=== PATIENT | male | born 1945 | race Caucasian/White ===

== ENCOUNTER → 2016-03-11 | Outpatient (CLI) | payer MEDICARE ==
--- NOTE | 2016-03-11 11:34 | FL ---
EXAMINATION TYPE: FL barium swallow DATE OF EXAM ORDERED: 03/11/2016 10:48 AM HISTORY: Dysphasia. COMPARISON: None. FINDINGS: The esophagus distended normally with air and barium without evidence of obstructing or co nstricting disease. The mucosal pattern throughout the esophagus is normal. There is no significant h iatal hernia or reflux. Limited views of the stomach are normal. IMPRESSION: NORMAL AIR-CONTRAST ESOPHAGRAM.
== END | disposition home or self-care (01) ==
LOC: RADFLWHC 10:16
PROVIDERS: ATTEND Family Medicine
DX: R13.10 Dysphagia, unspecified (principal)
CPT/HCPCS: 74220

== ENCOUNTER → 2016-04-14 | Outpatient (CLI) | payer MEDICARE ==
--- NOTE | 2016-04-14 13:53 | CT ---
EXAMINATION TYPE: CT abdomen wo con DATE OF EXAM: 04/14/2016 1:37 PM COMPARISON: NONE HISTORY: RUQ pain CT DLP: 1074.5 mGycm Automated exposure control for dose reduction was used. TECHNIQUE: Helical acquisition of images was performed from the lung bases through the top of iliac crest to include entire abdomen. CONTRAST: Performed with Oral Contrast and without IV contrast. FINDINGS: LUNG BASES: No significant abnormality is appreciated. LIVER/GB: Liver appears normal. Gallbladder may contain some calcification. PANCREAS: No significant abnormality is seen. SPLEEN: No significant abnormality is seen. ADRENALS: No significant abnormality is seen. KIDNEYS: There is a 0.5 cm calcification in the posterior mid pole left kidney. 0.4 cm calcification at the inferior pole right kidney. A 1.0 cm calcifications in the posterior midpole right kidney. No hydronephrosis or hydroureter is evident. BOWEL: No significant abnormality is seen. LYMPH NODES: No abnormal lymphadenopathy is evident. Abdominal aorta contains vascular calcification . Inferior vena cava is normal. OSSEOUS STRUCTURES: No significant abnormality is seen. OTHER: None IMPRESSION: BILATERAL NONOBSTRUCTING RENAL STONES.
== END | disposition home or self-care (01) ==
LOC: RADCTMAIN 12:28
PROVIDERS: ATTEND Family Medicine
DX: N20.0 Calculus of kidney (principal)
CPT/HCPCS: 74150

== ENCOUNTER → 2016-04-17 | Outpatient (CLI) | payer MEDICARE ==
--- NOTE | 2016-04-17 09:26 | NM ---
EXAMINATION TYPE: NM hepatobiliary w EF DATE OF EXAM: 04/17/2016 9:21 AM COMPARISON: NONE HISTORY: Right upper quadrant. TECHNIQUE: After the intravenous administration of 5.32 mCi Tc 99m Mebrofenin hepatobiliary scintigra phy is performed. Immediate images post injection. FINDINGS: There is satisfactory initial accumulation of tracer by the liver. The gallbladder is visualized wit hin 20 minutes. The small bowel activity is noted within 55 minutes. At one hour 8 ounces of oral e nsure plus is given to mimic CCK and gallbladder ejection fraction is calculated at 74 %, in the norm al range. Therefore there is no scintigraphic evidence of cystic or common bile duct obstruction to suggest acute cholecystitis or gallbladder dyskinesia. IMPRESSION: Exam is within normal limits.
== END | disposition home or self-care (01) ==
LOC: RADNMMAIN 06:58
PROVIDERS: ATTEND Family Medicine
DX: K81.9 Cholecystitis, unspecified (principal)
CPT/HCPCS: 78226; A9537

== ENCOUNTER → 2016-04-23 | Outpatient (CLI) | payer MEDICARE ==
[2016-04-23 14:22] LABS: Bilirubin, Delta 0.3 mg/dL (0.0-0.2); Total Bilirubin 1.3 mg/dL (0.2-1.3); Total Protein 6.3 g/dL (6.3-8.2)
== END | disposition home or self-care (01) ==
LOC: LABWHC1 13:25
PROVIDERS: ATTEND Physician Assistant
DX: R10.13 Epigastric pain (principal)
CPT/HCPCS: 36415; 80076; 82150; 83690

== ENCOUNTER → 2016-04-29 | Outpatient (CLI) | payer MEDICARE ==
[2016-04-29 15:00] LABS: Bilirubin, Delta 0.5 mg/dL (0.0-0.2); Total Bilirubin 1.6 mg/dL (0.2-1.3)
== END | disposition home or self-care (01) ==
LOC: LABWHC1 13:33
PROVIDERS: ATTEND Internal Medicine
DX: R19.7 Diarrhea, unspecified (principal); R10.13 Epigastric pain
CPT/HCPCS: 36415; 80076; 82150; 83690; 87045; 87046; 87324

== ENCOUNTER → 2016-04-30 | Outpatient (CLI) | payer MEDICARE ==
--- NOTE | 2016-04-30 19:31 | CT ---
EXAMINATION TYPE: CT brain wo con DATE OF EXAM: 04/30/2016 7:04 PM COMPARISON: 03/07/2006 HISTORY: Headache x [address] DLP: 1062.70 mGycm Automated exposure control for dose reduction was used. FINDINGS: There is cerebral cortical atrophy. There is no mass effect nor midline shift. There is no sign of in tracranial hemorrhage. Calvarium is intact. IMPRESSION: Cerebral atrophy. No acute intracranial abnormality. No adverse change compared to old exam.
== END | disposition home or self-care (01) ==
LOC: RADCTMAIN 18:33
PROVIDERS: ATTEND Family Medicine
DX: G31.9 Degenerative disease of nervous system, unspecified (principal)
CPT/HCPCS: 70450

== ENCOUNTER → 2016-09-04 | Outpatient (CLI) | payer MEDICARE ==
--- NOTE | 2016-09-04 15:34 | US ---
EXAMINATION TYPE: US venous doppler duplex LE BI DATE OF EXAM: 09/04/2016 2:48 PM COMPARISON: NONE CLINICAL HISTORY: R60.9 edema R09.89 chest pain. SIDE PERFORMED: Bilateral TECHNIQUE: The lower extremity deep venous system is examined utilizing real time linear array sonog norberto with graded compression, doppler sonography and color-flow sonography. VESSELS IMAGED: External Iliac Vein (EIV) Common Femoral Vein Deep Femoral Vein Greater Saphenous Vein * Femoral Vein Popliteal Vein Small Saphenous Vein * Proximal Calf Veins (* superficial vessels) No popliteal fossa lesion is seen. Right Leg: Negative for DVT Left Leg: Negative for DVT IMPRESSION: THIS EXAMINATION IS NEGATIVE FOR DVT IN BOTH LEGS.
--- NOTE | 2016-09-06 12:23 | ECHOF ---
Referral Reason:Neck Pain / M54.2 MEASUREMENTS -------- HEIGHT: 185.4 cm WEIGHT: 140.6 kg BP: RVIDd: 4.0 cm (< 3.3) IVSd: 1.1 cm (0.6 - 1.1) LVIDd: 4.5 cm (3.9 - 5.3) LVPWd: 1.3 cm (0.6 - 1.1) IVSs: 1.7 cm LVIDs: 3.6 cm LVPWs: 1.6 cm Ao Diam: 3.8 cm (2.0 - 3.7) AV Cusp: 2.6 cm (1.5 - 2.6) LA Diam: 4.1 cm (2.7 - 3.8) MV EXCURSION: 9.479 mm (> 18.000) MV EF SLOPE: 70 mm/s (70 - 150) EPSS: 1.3 cm MV E Ziggy: 0.46 m/s MV DecT: 227 ms MV A Ziggy: 0.76 m/s MV E/A Ratio: 0.60 RAP: 5.00 mmHg RVSP: 9.35 mmHg FINDINGS -------- Sinus rhythm. This was a technically difficult study with suboptimal views. There is mild concentric left ventricular hypertrophy. Overall left ventricular systolic function is normal with, an EF between 55 - 60 %. The right ventricle is moderately enlarged. The left atrium is normal in size. The right atrium is normal in size. 1.5mg of Definity was utilized for enhancement of images The aortic valve is trileaflet, and appears structurally normal. No aortic stenosis or regurgitation. The mitral valve leaflets are mildly thickened. There is trace mitral regurgitation. Trace tricuspid regurgitation present. The right ventricular systolic pressure, as measured by Doppler, is 9.35mmHg. Pulmonic valve appears structurally normal. The aortic root size is normal. The pericardium is normal. CONCLUSIONS -------- 1. Sinus rhythm. 2. The mitral valve leaflets are mildly thickened. 3. There is trace mitral regurgitation. 4. Trace tricuspid regurgitation present. 5. The right ventricular systolic pressure, as measured by Doppler, is 9.35mmHg. 6. Pulmonic valve appears structurally normal. 7. The aortic root size is normal. 8. The pericardium is normal. 9. This was a technically difficult study with suboptimal views. 10. There is mild concentric left ventricular hypertrophy. 11. Overall left ventricular systolic function is normal with, an EF between 55 - 60 %. 12. The right ventricle is moderately enlarged. 13. The left atrium is normal in size. 14. The right atrium is normal in size. 15. 1.5mg of Definity was utilized for enhancement of images 16. The aortic valve is trileaflet, and appears structurally normal. No aortic stenosis or regurgitation. ROLLING DOWN MACHINE OPERATOR: Nathalia Godwin RDCS
--- NOTE | 2016-09-09 11:32 | P.ARTDOP ---
Arterial Doppler LOWER EXTREMITY ARTERIAL DOPPLER: DATE OF SERVICE: 09/04/2016 Reason for study: Lower extremity edema. Doppler waveforms: Multiphasic bilaterally throughout. Pulse volume recording: Normal configuration. Pressure gradients: None. Ankle-brachial indices: Greater than 1 bilaterally. Toe pressures: [] on the right, [] on the left Impression: Normal study.
== END | disposition home or self-care (01) ==
LOC: RADUSWWP 14:02
PROVIDERS: ATTEND Family Medicine
DX: I08.1 Rheumatic disorders of both mitral and tricuspid valves (principal); I51.7 Cardiomegaly; R60.9 Edema, unspecified
CPT/HCPCS: 93923; 93970; C8929; Q9957; 93306

== ENCOUNTER → 2016-11-09 | Outpatient (CLI) | payer MEDICARE ==
[2016-11-09 13:20] LABS: INR 1.1 (<1.2); Partial Thromboplastin Time 25.5 sec (22.0-30.0); Prothrombin Time 10.9 sec (9.0-12.0)
[2016-11-09 14:15] LABS: Rheumatoid Factor, Qnt <9 IU/mL (<12)
[2016-11-09 14:16] LABS: C Reactive Protein <5.0 mg/L (<10.0); Creatine Kinase 96 U/L (55-170)
[2016-11-09 15:04] LABS: Vitamin B12 310 pg/mL
[2016-11-09 20:05] LABS: Treponemal Ab Non-Reactive (Non-Reactive)
[2016-11-09 20:38] LABS: ANA w/Reflex to Titer POSITIVE (NEGATIVE)
[2016-11-09 21:31] LABS: Hemoglobin A1C 5.4 % (4.2-6.1)
[2016-11-10 11:44] LABS: Lyme IgG/IgM Interp NEGATIVE (NEGATIVE)
== END | disposition home or self-care (01) ==
LOC: LABWHC1 12:13
PROVIDERS: ATTEND Psychiatry & Neurology Neurology
DX: G62.9 Polyneuropathy, unspecified (principal)
CPT/HCPCS: 36415; 82550; 82607; 82747; 83036; 84165; 84439; 84443; 85610; 85652; 85730; 86038; 86039; 86140; 86225; 86431; 86618; 86780

== ENCOUNTER → 2017-08-19 | Outpatient (CLI) | payer MEDICARE | END | disposition home or self-care (01) | LOC: LABWHC1 13:31 | PROVIDERS: ATTEND Urology | DX: N20.0 Calculus of kidney (principal) | CPT/HCPCS: 87086 ==

== ENCOUNTER 2018-01-04 16:02 | Emergency (ER) | payer MEDICARE ==
[2018-01-04 16:11] VITALS: RESP 18
--- NOTE | 2018-01-04 16:40 | ED ---
General Adult HPI - General Chief complaint: Shortness of Breath Stated complaint: SOB Time Seen by Provider: 01/04/18 16:27 Source: patient, family, RN notes reviewed Mode of arrival: ambulatory Limitations: no limitations - History of Present Illness Initial comments: Patient is a pleasant 72-year-old male presenting to the emergency department with complaints of shortness of breath. Onset of symptoms was this morning. Symptoms have been present throughout the day. Symptoms are generally with exertion and are very mild at rest. Patient is only able to walk around 10 minutes before needing to rest. Patient has chronic chest pain from previous surgery that is unchanged. No leg pain or leg swelling. Patient was a little bit sweaty this morning with exertion. No nausea or vomiting. Patient feels slightly lightheaded. - Related Data Home Medications Medication Instructions Recorded Confirmed ALPRAZolam [Xanax] 1 mg PO DAILY PRN 01/04/18 01/04/18 Acetaminophen Tab [Tylenol Tab] 650 mg PO Q6H PRN 01/04/18 01/04/18 Allopurinol [Zyloprim] 200 mg PO BID 01/04/18 01/04/18 Amitriptyline HCl [Elavil] 50 mg PO HS 01/04/18 01/04/18 Baclofen [Lioresal] 10 mg PO TID 01/04/18 01/04/18 Colchicine 0.6 mg PO DAILY PRN 01/04/18 01/04/18 Finasteride [Proscar] 5 mg PO DAILY 01/04/18 01/04/18 L.acidoph,Paracasei, B.lactis 1 cap PO DAILY 01/04/18 01/04/18 [Probiotic] Melatonin 10 mg PO HS 01/04/18 01/04/18 Metoprolol Tartrate [Lopressor] 50 mg PO BID 01/04/18 01/04/18 Polyethylene Glycol 3350 [Miralax] 17 gm PO DAILY PRN 01/04/18 01/04/18 Ranitidine HCl [Zantac] 150 mg PO BID 01/04/18 01/04/18 Tamsulosin HCl [Flomax] 0.4 mg PO Q48H 01/04/18 01/04/18 Tamsulosin HCl [Flomax] 0.8 mg PO Q48H 01/04/18 01/04/18 Zolpidem Tartrate [Ambien Cr] 12.5 mg PO HS 01/04/18 01/04/18 amLODIPine BESYLATE/BENAZEPRIL 1 cap PO DAILY 01/04/18 01/04/18 [Lotrel 10-20 mg Capsule] diphenhydrAMINE [Benadryl] 25 mg PO HS PRN 01/04/18 01/04/18 Allergies Allergy/AdvReac Type Severity Reaction Status Date / Time Sulfa (Sulfonamide Allergy Rash/Hives Verified 01/04/18 16:54 Antibiotics) Review of Systems ROS Statement: Those systems with pertinent positive or pertinent negative responses have been documented in the HPI. ROS Other: All systems not noted in ROS Statement are negative. Constitutional: Denies: fever Eyes: Denies: eye pain ENT: Denies: ear pain Respiratory: Reports: as per HPI, dyspnea. Denies: cough Cardiovascular: Reports: as per HPI Endocrine: Reports: fatigue Gastrointestinal: Denies: abdominal pain, nausea, vomiting Genitourinary: Denies: dysuria Musculoskeletal: Denies: back pain Skin: Denies: rash Neurological: Denies: headache Past Medical History Past Medical History: Cancer, GERD/Reflux, Hypertension, Prostate Disorder Additional Past Medical History / Comment(s): gout History of Any Multi-Drug Resistant Organisms: C-DIFF Date of last positivie culture/infection: 2014 Past Surgical History: Appendectomy, Hernia Repair Additional Past Surgical History / Comment(s): lung removed small intestinal tumor removal Past Psychological History: No Psychological Hx Reported Smoking Status: Former smoker Past Alcohol Use History: Rare Past Drug Use History: Marijuana General Exam Limitations: no limitations General appearance: alert, in no apparent distress Head exam: Present: atraumatic Eye exam: Present: normal appearance Neck exam: Present: normal inspection Respiratory exam: Present: normal lung sounds bilaterally Cardiovascular Exam: Present: tachycardia, irregular rhythm GI/Abdominal exam: Present: soft. Absent: distended, tenderness, guarding, rebound, rigid Extremities exam: Present: normal inspection. Absent: pedal edema, calf tenderness Back exam: Present: normal inspection Neurological exam: Present: alert Psychiatric exam: Present: normal affect, normal mood Skin exam: Present: normal color Course Vital Signs 01/04/18 01/04/18 16:05 18:00 Temperature 97.4 F L Pulse Rate 95 110 H Respiratory 18 18 Rate Blood Pressure 134/84 100/79 O2 Sat by Pulse 95 95 Oximetry EKG Findings - EKG Comments: EKG Findings:: A. fib with RVR, rate 107. QRS 90. QT 300. QTc 400. Normal axis. Inferior Q waves. T-wave inversion V1 through V3. Borderline ST depression in V2 V3. Medical Decision Making - Medical Decision Making Patient reevaluated and resting comfortably in bed. Patient and family updated on results and plan. Case was discussed in detail with Dr. Patterson who will admit covering for Dr. Mcneil. She does also requests adding computed tomography scan of the chest. - Lab Data Result diagrams: 01/04/18 17:05 01/04/18 17:05 Lab Results 01/04/18 01/04/18 01/04/18 Range/Units 17:05 17:05 17:05 WBC 8.4 (3.8-10.6) k/uL RBC 5.38 (4.30-5.90) m/uL Hgb 16.6 (13.0-17.5) gm/dL Hct 48.5 (39.0-53.0) % MCV 90.2 (80.0-100.0) fL MCH 30.8 (25.0-35.0) pg MCHC 34.1 (31.0-37.0) g/dL RDW 14.9 (11.5-15.5) % Plt Count 175 (150-450) k/uL Neutrophils % 84 % Lymphocytes % 8 % Monocytes % 6 % Eosinophils % 1 % Basophils % 0 % Neutrophils # 7.0 (1.3-7.7) k/uL Lymphocytes # 0.7 L (1.0-4.8) k/uL Monocytes # 0.5 (0-1.0) k/uL Eosinophils # 0.1 (0-0.7) k/uL Basophils # 0.0 (0-0.2) k/uL PT (9.0-12.0) sec INR (<1.2) APTT (22.0-30.0) sec Sodium 139 (137-145) mmol/L Potassium 4.7 (3.5-5.1) mmol/L Chloride 109 H (98-107) mmol/L Carbon Dioxide 22 (22-30) mmol/L Anion Gap 8 mmol/L BUN 15 (9-20) mg/dL Creatinine 0.81 (0.66-1.25) mg/dL Est GFR (CKD-EPI)AfAm >90 (>60 ml/min/1.73 sqM) Est GFR (CKD-EPI)NonAf >90 (>60 ml/min/1.73 sqM) Glucose 155 H (74-99) mg/dL Calcium 9.6 (8.4-10.2) mg/dL Total Bilirubin 0.9 (0.2-1.3) mg/dL AST 51 (17-59) U/L ALT 60 (21-72) U/L Alkaline Phosphatase 82 (38-126) U/L Total Creatine Kinase 48 L (55-170) U/L CK-MB (CK-2) 2.1 (0.0-2.4) ng/mL CK-MB (CK-2) Rel Index 4.4 Troponin I 0.209 H* (0.000-0.034) ng/mL NT-Pro-B Natriuret Pep pg/mL Total Protein 6.2 L (6.3-8.2) g/dL Albumin 3.9 (3.5-5.0) g/dL 01/04/18 01/04/18 Range/Units 17:05 17:05 WBC (3.8-10.6) k/uL RBC (4.30-5.90) m/uL Hgb (13.0-17.5) gm/dL Hct (39.0-53.0) % MCV (80.0-100.0) fL MCH (25.0-35.0) pg MCHC (31.0-37.0) g/dL RDW (11.5-15.5) % Plt Count (150-450) k/uL Neutrophils % % Lymphocytes % % Monocytes % % Eosinophils % % Basophils % % Neutrophils # (1.3-7.7) k/uL Lymphocytes # (1.0-4.8) k/uL Monocytes # (0-1.0) k/uL Eosinophils # (0-0.7) k/uL Basophils # (0-0.2) k/uL PT 10.6 (9.0-12.0) sec INR 1.1 (<1.2) APTT 24.9 (22.0-30.0) sec Sodium (137-145) mmol/L Potassium (3.5-5.1) mmol/L Chloride (98-107) mmol/L Carbon Dioxide (22-30) mmol/L Anion Gap mmol/L BUN (9-20) mg/dL Creatinine (0.66-1.25) mg/dL Est GFR (CKD-EPI)AfAm (>60 ml/min/1.73 sqM) Est GFR (CKD-EPI)NonAf (>60 ml/min/1.73 sqM) Glucose (74-99) mg/dL Calcium (8.4-10.2) mg/dL Total Bilirubin (0.2-1.3) mg/dL AST (17-59) U/L ALT (21-72) U/L Alkaline Phosphatase (38-126) U/L Total Creatine Kinase (55-170) U/L CK-MB (CK-2) (0.0-2.4) ng/mL CK-MB (CK-2) Rel Index Troponin I (0.000-0.034) ng/mL NT-Pro-B Natriuret Pep 548 pg/mL Total Protein (6.3-8.2) g/dL Albumin (3.5-5.0) g/dL - Radiology Data Radiology results: image reviewed (Chest x-ray shows no acute process) Critical Care Time Critical Care Time: Yes Total Critical Care Time: 33 Disposition Clinical Impression: Atrial fibrillation with RVR Disposition: ADMITTED IP TO THIS HOSP Is patient prescribed a controlled substance at d/c from ED?: No Referrals: Donavan Mcneil DO [Primary Care Provider] - 1-2 days Decision Time: 19:50
[2018-01-04 17:24] LABS: Basophils % (A) 0 %; Eosinophils # (A) 0.1 k/uL (0-0.7); Eosinophils % (A) 1 %; HCT 48.5 % (39.0-53.0); HGB 16.6 gm/dL (13.0-17.5); Lymphocytes # (A) 0.7 k/uL (1.0-4.8); Lymphocytes % (A) 8 %; MCH 30.8 pg (25.0-35.0); MCHC 34.1 g/dL (31.0-37.0); MCV 90.2 fL (80.0-100.0); Mean Platelet Volume 6.7; Monocytes # (A) 0.5 k/uL (0-1.0); Monocytes % (A) 6 %; Neutrophils % (A) 84 %; Platelet Count 175 k/uL (150-450); RBC 5.38 m/uL (4.30-5.90); RDW 14.9 % (11.5-15.5); WBC 8.4 k/uL (3.8-10.6)
[2018-01-04 17:32] LABS: INR 1.1 (<1.2); Partial Thromboplastin Time 24.9 sec (22.0-30.0); Prothrombin Time 10.6 sec (9.0-12.0)
[2018-01-04 17:37] LABS: ALT 60 U/L (21-72); AST 51 U/L (17-59); Albumin 3.9 g/dL (3.5-5.0); Alkaline Phosphatase 82 U/L (38-126); Anion Gap 8 mmol/L; Blood Urea Nitrogen 15 mg/dL (9-20); Calcium 9.6 mg/dL (8.4-10.2); Carbon Dioxide 22 mmol/L (22-30); Chloride 109 mmol/L (98-107); Glucose 155 mg/dL (74-99); Potassium 4.7 mmol/L (3.5-5.1); Sodium 139 mmol/L (137-145); Total Bilirubin 0.9 mg/dL (0.2-1.3); Total Protein 6.2 g/dL (6.3-8.2)
[2018-01-04 17:52] LABS: Creatine Kinase MB 2.1 ng/mL (0.0-2.4)
[2018-01-04 17:58] LABS: Troponin I 0.209 ng/mL (0.000-0.034)
--- NOTE | 2018-01-04 18:30 | XR ---
EXAMINATION: XR chest 3V DATE AND TIME: 01/04/2018 5:21 PM CLINICAL INDICATION: difficulty breathing TECHNIQUE: 2 PA views and 1 lateral view COMPARISON: 01/17/2012 FINDINGS: The lungs are clear. The pleural spaces are negative. The cardiac silhouette is mild moderately enlarged, unchanged. The remainder of the mediastinal silhouette is unremarkable. The skeletal structures and soft tissues are negative for acute findings. IMPRESSION: NO ACUTE PROCESS.
[2018-01-04] MEDS ORDERED: HEPARIN SODIUM,PORCINE 5,000 UNIT/ML 1 ML VIAL IV ONE (19:42)
[2018-01-04] MEDS ORDERED: HEPARIN SODIUM,PORCINE 5,000 UNIT/ML 1 ML VIAL IV PRN ×2 (19:42→21:31)
[2018-01-04] MEDS ORDERED: HEPARIN SOD,PORK IN 0.45% NACL 25,000 UNIT in 0.45% NACL 1 500ML.BAG IV SCH ×2 (19:45→21:45)
[2018-01-04] MEDS ORDERED: DILTIAZEM 50 MG in SODIUM CHLORIDE 0.9% 40 ML IV SCH (19:45)
[2018-01-04] MEDS ORDERED: ASPIRIN 81 MG PO STA (19:55)
[2018-01-04] MEDS ORDERED: NITROGLYCERIN SL TABS 0.4 MG TAB SUBLINGUAL PRN (19:55)
--- NOTE | 2018-01-04 21:34 | CT ---
EXAMINATION TYPE: CT angio chest with contrast and with 3-D reconstruction renderings DATE OF EXAM: 01/04/2018 9:10 PM COMPARISON: None HISTORY: dyspnea with rest CT DLP: 854.1 mGycm. Automated exposure control for dose reduction was used. CONTRAST: CTA scan of the thorax is performed with IV Contrast, patient injected with 100 mL of Isovu e 370, pulmonary embolism protocol. 3-D reconstructions. FINDINGS: There are large filling defects throughout the right and left pulmonary arteries, the dista l main pulmonary artery, and throughout many if not all of the bilateral segmental pulmonary arterial branches. These are consistent with large pulmonary emboli. In addition, the right heart chambers ar e larger than the left ventricle and there is leftward mass effect upon the septum, consistent with r ight heart strain. There is no cardiomegaly or pericardial effusion. Coronary calcifications are noted. No mediastinal or hilar adenopathy. The airways are unremarkable and the lungs are clear. The pleural spaces are negative. Skeletal structures and extrathoracic soft tissues are unremarkable. IMPRESSION: LARGE BILATERAL PULMONARY EMBOLI WITH RIGHT HEART STRAIN. Results communicated just now with covering physician Dr. Estrada.
--- NOTE | 2018-01-04 22:09 | ED ---
Medical Decision Making - Medical Decision Making Patient and family updated. Case was discussed in detail with Dr. Stevens, vascular surgeon at [facility] who does recommend transfer for procedural removal of embolism. Case was also discussed with Dr. Sheehan emergency department who will accept transfer. - Lab Data Result diagrams: 01/04/18 17:05 01/04/18 17:05 Lab Results 01/04/18 01/04/18 01/04/18 Range/Units 17:05 17:05 17:05 WBC 8.4 (3.8-10.6) k/uL RBC 5.38 (4.30-5.90) m/uL Hgb 16.6 (13.0-17.5) gm/dL Hct 48.5 (39.0-53.0) % MCV 90.2 (80.0-100.0) fL MCH 30.8 (25.0-35.0) pg MCHC 34.1 (31.0-37.0) g/dL RDW 14.9 (11.5-15.5) % Plt Count 175 (150-450) k/uL Neutrophils % 84 % Lymphocytes % 8 % Monocytes % 6 % Eosinophils % 1 % Basophils % 0 % Neutrophils # 7.0 (1.3-7.7) k/uL Lymphocytes # 0.7 L (1.0-4.8) k/uL Monocytes # 0.5 (0-1.0) k/uL Eosinophils # 0.1 (0-0.7) k/uL Basophils # 0.0 (0-0.2) k/uL PT (9.0-12.0) sec INR (<1.2) APTT (22.0-30.0) sec Sodium 139 (137-145) mmol/L Potassium 4.7 (3.5-5.1) mmol/L Chloride 109 H (98-107) mmol/L Carbon Dioxide 22 (22-30) mmol/L Anion Gap 8 mmol/L BUN 15 (9-20) mg/dL Creatinine 0.81 (0.66-1.25) mg/dL Est GFR (CKD-EPI)AfAm >90 (>60 ml/min/1.73 sqM) Est GFR (CKD-EPI)NonAf >90 (>60 ml/min/1.73 sqM) Glucose 155 H (74-99) mg/dL Calcium 9.6 (8.4-10.2) mg/dL Total Bilirubin 0.9 (0.2-1.3) mg/dL AST 51 (17-59) U/L ALT 60 (21-72) U/L Alkaline Phosphatase 82 (38-126) U/L Total Creatine Kinase 48 L (55-170) U/L CK-MB (CK-2) 2.1 (0.0-2.4) ng/mL CK-MB (CK-2) Rel Index 4.4 Troponin I 0.209 H* (0.000-0.034) ng/mL NT-Pro-B Natriuret Pep pg/mL Total Protein 6.2 L (6.3-8.2) g/dL Albumin 3.9 (3.5-5.0) g/dL 01/04/18 01/04/18 Range/Units 17:05 17:05 WBC (3.8-10.6) k/uL RBC (4.30-5.90) m/uL Hgb (13.0-17.5) gm/dL Hct (39.0-53.0) % MCV (80.0-100.0) fL MCH (25.0-35.0) pg MCHC (31.0-37.0) g/dL RDW (11.5-15.5) % Plt Count (150-450) k/uL Neutrophils % % Lymphocytes % % Monocytes % % Eosinophils % % Basophils % % Neutrophils # (1.3-7.7) k/uL Lymphocytes # (1.0-4.8) k/uL Monocytes # (0-1.0) k/uL Eosinophils # (0-0.7) k/uL Basophils # (0-0.2) k/uL PT 10.6 (9.0-12.0) sec INR 1.1 (<1.2) APTT 24.9 (22.0-30.0) sec Sodium (137-145) mmol/L Potassium (3.5-5.1) mmol/L Chloride (98-107) mmol/L Carbon Dioxide (22-30) mmol/L Anion Gap mmol/L BUN (9-20) mg/dL Creatinine (0.66-1.25) mg/dL Est GFR (CKD-EPI)AfAm (>60 ml/min/1.73 sqM) Est GFR (CKD-EPI)NonAf (>60 ml/min/1.73 sqM) Glucose (74-99) mg/dL Calcium (8.4-10.2) mg/dL Total Bilirubin (0.2-1.3) mg/dL AST (17-59) U/L ALT (21-72) U/L Alkaline Phosphatase (38-126) U/L Total Creatine Kinase (55-170) U/L CK-MB (CK-2) (0.0-2.4) ng/mL CK-MB (CK-2) Rel Index Troponin I (0.000-0.034) ng/mL NT-Pro-B Natriuret Pep 548 pg/mL Total Protein (6.3-8.2) g/dL Albumin (3.5-5.0) g/dL - Radiology Data Radiology results: report reviewed (Computed tomography scan of the chest positive for central bilateral pulmonary embolism as discussed with radiologist with evidence of heart strain.) Disposition Clinical Impression: Atrial fibrillation with RVR, Acute massive pulmonary embolism Disposition: OTHER INSTITUTION NOT DEFINED - Out of Hospital Transfer - Req. Specs Out of Hospital Transfer - Requested Specifics: Other Emergency Center
[2018-01-04 22:33] VITALS: BP 121/93; PULSE 99; TEMP 97.8
[2018-01-05] MEDS ORDERED: ASPIRIN 325 MG TAB PO SCH (09:00)
== END 2018-01-04 22:45 | disposition short-term general hospital (02) ==
LOC: EC 16:02 → UNDOADMIN 19:55 → 3SCARD 19:55 → EC 22:45
DX: I48.91 Unspecified atrial fibrillation (principal); I26.99 Other pulmonary embolism without acute cor pulmonale; R07.9 Chest pain, unspecified; G89.29 Other chronic pain; I10 Essential (primary) hypertension; K21.9 Gastro-esophageal reflux disease without esophagitis; N42.9 Disorder of prostate, unspecified; M10.9 Gout, unspecified; Z87.891 Personal history of nicotine dependence; Z88.2 Allergy status to sulfonamides; Z79.899 Other long term (current) drug therapy; Z85.9 Personal history of malignant neoplasm, unspecified; Z98.890 Other specified postprocedural states
CPT/HCPCS: 36415; 93005; 83880; 80053; 82550; 82553; 84484; 85025; 85610; 85730; 71046; 71275; 99291; 96365; 96366; 96376; J1644 ×2; Q9967

== ENCOUNTER → 2018-03-07 | Outpatient (CLI) | payer MEDICARE ==
--- NOTE | 2018-03-07 18:44 | ECHOF ---
Referral Reason:I48.91 Afib MEASUREMENTS -------- HEIGHT: 193.0 cm WEIGHT: 138.3 kg BP: IVSd: 1.2 cm (0.6 - 1.1) LVIDd: 2.4 cm (3.9 - 5.3) LVPWd: 1.2 cm (0.6 - 1.1) IVSs: 1.5 cm LVIDs: 1.9 cm LVPWs: 1.5 cm RVIDd: 3.1 cm (< 3.3) LAESV Index (A-L): 13.66 ml/m Ao Diam: 3.8 cm (2.0 - 3.7) LA Diam: 3.9 cm (2.7 - 3.8) AV Cusp: 2.6 cm (1.5 - 2.6) MV E Ziggy: 0.41 m/s MV DecT: 264 ms MV A Ziggy: 0.62 m/s MV E/A Ratio: 0.66 RAP: 5.00 mmHg RVSP: 21.42 mmHg FINDINGS -------- Sinus rhythm. This was a technically difficult study with suboptimal views. The left ventricular size is normal. There is mild concentric left ventricular hypertrophy. Overa ll left ventricular systolic function is mildly impaired with, an EF between 45 - 50 %. The right ventricle is mildly enlarged. Normal LA size by volume 22+/-6 ml/m2. The right atrium is normal in size. There is mild aortic valve sclerosis. There is no evidence of aortic regurgitation. There is no e vidence of aortic stenosis. The mitral valve leaflets are mildly thickened. There is trace to mild mitral regurgitation. Trace tricuspid regurgitation present. Right ventricular systolic pressure is normal at < 35 mmHg. There is no evidence of pulmonary hypertension. The pulmonic valve was not well visualized. 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 Normal inferior vena cava with normal inspiratory collapse consistent with estimated right atrial pre ssure of 5 mmHg. There is no pericardial effusion. CONCLUSIONS -------- 1. Sinus rhythm. 2. This was a technically difficult study with suboptimal views. 3. The left ventricular size is normal. 4. There is mild concentric left ventricular hypertrophy. 5. Overall left ventricular systolic function is mildly impaired with, an EF between 45 - 50 %. 6. The right ventricle is mildly enlarged. 7. Normal LA size by volume 22+/-6 ml/m2. 8. There is mild aortic valve sclerosis. 9. The mitral valve leaflets are mildly thickened. 10. There is trace to mild mitral regurgitation. 11. Trace tricuspid regurgitation present. 12. Right ventricular systolic pressure is normal at < 35 mmHg. 13. There is no evidence of pulmonary hypertension. 14. The pulmonic valve was not well visualized. 15. 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 16. Normal inferior vena cava with normal inspiratory collapse consistent with estimated right atrial pressure of 5 mmHg. 17. There is no pericardial effusion. BRICK TESTER: Fernanod Marshall RDCS
== END | disposition home or self-care (01) ==
LOC: RADECHMAIN 15:01
PROVIDERS: ATTEND Family Medicine
DX: I51.7 Cardiomegaly (principal); I34.0 Nonrheumatic mitral (valve) insufficiency; I35.8 Other nonrheumatic aortic valve disorders; I48.91 Unspecified atrial fibrillation
CPT/HCPCS: 93306

== ENCOUNTER → 2018-09-23 | Outpatient (CLI) | payer MEDICARE ==
--- NOTE | 2018-09-23 16:08 | MR ---
EXAMINATION TYPE: MR cervical spine wo con DATE OF EXAM: 09/23/2018 COMPARISON: MRI brain dated 11/13/2016 HISTORY: spondylosis with myelopathy TECHNIQUE: Multiplanar, multisequence images of the cervical spine were acquired. FINDINGS: The cervical spine vertebral bodies maintain normal vertebral body height. There is very mi nimal grade 1 anterolisthesis of C4 and C5, likely on a degenerative basis. There are bridging anteri or osteophytes from C3 through C7 suggesting diffuse idiopathic skeletal hyperostosis. There are prot uberant disc osteophyte complexes posteriorly at C5-C6 and C6-C7 narrowing the spinal canal. There is slight abnormal spinal cord signal at T1-T2 as seen on the prior of 11/13/2016 suggesting focal mild myelomalacia. There is also volume loss on the spinal cord at this level. Atrophic changes of the cer ebellum are noted, partially visualized. Bone marrow signal is within normal limits. No prevertebral soft tissue swelling. C2-C3: There is a small central disc herniation, uncovertebral hypertrophy, and facet arthropathy cre ating mild left and severe right neural foraminal narrowing as well as minimally narrowing the ventra l subarachnoid space without spinal canal stenosis. C3-C4: There is uncovertebral hypertrophy, facet arthropathy and a small central disc herniation in c ombination moderately narrowing the left neuroforamen, mildly narrowing the right neural foramen and very mildly narrowing the spinal canal. C4-C5: There is a focal central disc herniation, facet arthropathy, and uncovertebral hypertrophy. Th ere is only very minimal right neural foraminal narrowing. The left neuroforamen is patent. Disc farhan iation creates mild spinal canal stenosis narrowing the ventral subarachnoid space. C5-C6: There is a focal disc herniation centrally extending to the right paracentral spinal canal wit h a large protuberant posterior disc osteophyte complex creating moderate spinal canal stenosis. Unco vertebral hypertrophy and facet arthropathy creating mild bilateral neural foraminal narrowing. C6-C7: Similar to C5-C6 there is a large protuberant posterior disc osteophyte complex and central di sc herniation as well as uncovertebral hypertrophy and facet arthropathy creating mild left neural fo raminal narrowing, moderate spinal stenosis and minimal right neural foraminal narrowing. C7-T1: There is a broad-based disc bulge and disc desiccation with uncovertebral hypertrophy creating mild bilateral neural foraminal narrowing without spinal canal stenosis. Partially visualized at T1-T2 there is focal myelomalacia from a right paracentral disc herniation ex tending into the neural foramen creating severe right neural foraminal narrowing. Mild left neural fo raminal narrowing is also seen. IMPRESSION: 1. Partially visualized focal myelomalacia at T1-T2 from central disc herniation as seen on the prior of 2016. 2. Large protuberant posterior disc osteophyte complexes and posterior disc herniations at C5-C6 and C6-C7 creating moderate spinal canal stenosis at these levels. 3. Small central disc herniation at C2-C3 without spinal canal stenosis. 4. Multilevel severe neural foraminal narrowing with other variable degrees of neural foraminal narro wing as detailed above at each level. 5. Small central disc herniation at C3-C4 very mildly narrowing the spinal canal. 6. Grade 1 anterolisthesis of C4 and C5, likely on a degenerative basis.
== END ==
LOC: RADMRIMAIN 12:04
PROVIDERS: ATTEND Psychiatry & Neurology Neurology
DX: M48.02 Spinal stenosis, cervical region (principal); M50.222 Other cervical disc displacement at C5-C6 level; M43.12 Spondylolisthesis, cervical region; M50.01 Cervical disc disorder with myelopathy, high cervical region; M51.24 Other intervertebral disc displacement, thoracic region; M25.78 Osteophyte, vertebrae; G95.89 Other specified diseases of spinal cord
CPT/HCPCS: 72141

== ENCOUNTER → 2018-09-23 | Outpatient (CLI) | payer MEDICARE ==
[2018-09-23 19:04] LABS: C Reactive Protein 0.5 mg/dL (0.0-0.8)
[2018-09-23 19:29] LABS: Protein, Total 5.7 g/dL (6.2-8.2)
[2018-09-23 20:30] LABS: Rheumatoid Factor <4 IU/mL (0-15)
[2018-09-23 21:38] LABS: Hemoglobin A1C 5.8 % (4.0-6.0)
[2018-09-26 12:29] LABS: ANA Pattern Homogeneous
[2018-09-26 14:04] LABS: Albumin 3.84 g/dL (3.80-4.90); Gamma Globulin 0.43 g/dL (0.70-1.50)
[2018-09-27 11:53] LABS: Lyme IgG/IgM 0.03 Index
== END ==
LOC: LABWHC1 11:32
PROVIDERS: ATTEND Psychiatry & Neurology Neurology
DX: E11.9 Type 2 diabetes mellitus without complications (principal); G62.9 Polyneuropathy, unspecified
CPT/HCPCS: 36415; 82550; 82607; 82747; 83036; 84165; 84166; 84207; 85652; 86038; 86039; 86140; 86431; 86618

== ENCOUNTER → 2018-10-04 | Outpatient (CLI) | payer MEDICARE | END | disposition home or self-care (01) | LOC: LABWHC1 15:50 | PROVIDERS: ATTEND Psychiatry & Neurology Neurology | DX: G90.09 Other idiopathic peripheral autonomic neuropathy (principal) | CPT/HCPCS: 36415 ==

== ENCOUNTER → 2018-11-29 | Outpatient (CLI) | payer MEDICARE ==
--- NOTE | 2018-11-29 15:43 | CT ---
EXAMINATION TYPE: CT cervical spine wo con DATE OF EXAM: 11/29/2018 COMPARISON: MRI 09/23/2018 HISTORY: 73-year-old male Spondylosis without myelopathy TECHNIQUE: Contiguous axial scanning of the cervical spine without IV contrast. Coronal and sagittal reconstructions performed. CT DLP: 1019.50 mGycm Automated exposure control for dose reduction was used. FINDINGS: Either a megacisterna magna or a prominent arachnoid cyst on the right paramedian retrocerebellar reg ion. No craniocervical junction anomaly. However, prominent degenerative changes at the C1 dens articulati on. Bulky bridging anterior endplate spondylosis from C2 through T2 levels suggestive of dish. Some of th e bridging spurs are fragmented at the C2-C3 and C3-C4 level as well as at the T1-T2 level. 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 Additional disc osteophyte complex at T1-T2 contributes to a moderate to severe focal spinal canal st enosis with AP canal dimension of 6 mm. Multilevel advanced hypertrophic facet and uncovertebral joint arthropathy. No evidence of malalignment. Bulky anterior endplate spondylosis especially in the upper cervical spine causes prominent impressio n on the posterior wall of the oropharynx and hypopharynx. At C2-C3, moderate right neuroforaminal stenosis. At C3-C4, severe bilateral neuroforaminal stenosis. At C4-C5, [id number] right and mild left neuroforaminal stenosis. At C5-C6, moderate bilateral neural foraminal stenosis. At C6/C7, moderate right and mild left foraminal stenosis. At C7-T1, moderate right neuroforaminal stenosis. At T1-T2, severe bilateral neuroforaminal stenosis. At T2-T3, moderate right and severe left neuroforaminal stenosis. IMPRESSION: 1. 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 2. Bridging anterior endplate spondylosis extends from C2 down to the T2 level. 3. Additional OPLL from C4 through C7 levels with moderate spinal canal stenoses here. 4. Disc osteophyte complex at T1-T2 causes a more moderate to severe spinal canal stenosis with AP ca nal dimension of 6 mm. Changes are similar as seen on MRI of 09/23/2018. 5. Variable moderate and severe neuroforaminal stenoses as outlined above.
== END | disposition home or self-care (01) ==
LOC: RADMRIMAIN 12:07
DX: M48.02 Spinal stenosis, cervical region (principal); M43.02 Spondylolysis, cervical region; M25.78 Osteophyte, vertebrae
CPT/HCPCS: 72125

== ENCOUNTER → 2020-10-08 | Outpatient (CLI) | payer MEDICARE | END | disposition home or self-care (01) | LOC: RADMRIMAIN 15:01 | PROVIDERS: ATTEND Psychiatry & Neurology Neurology | DX: Z53.9 Procedure and treatment not carried out, unspecified reason (principal) ==

== ENCOUNTER → 2021-02-18 | Outpatient (CLI) | payer MEDICARE ==
--- NOTE | 2021-02-18 12:34 | US ---
EXAMINATION TYPE: US venous doppler duplex LE BI DATE OF EXAM: 02/18/2021 9:08 AM COMPARISON: NONE CLINICAL HISTORY: 75-year-old male I87.313 Chronic venous hypertension w/ ulcer of bi. Nonhealing ulc er of Right anterior lower leg for the past week LOWER EXTREMITY VENOUS INSUFFICIENCY FINDINGS: SIDE PERFORMED: Bilateral 1) Color flow is present and patency is documented in the following vessels. No DVT or SVT is noted . Common Femoral Vein Deep Femoral Vein Femoral Vein Popliteal Vein Proximal Calf Veins Greater Saph Vein Upper Small Saph Vein 2) There is venous reflux noted at the following venous levels: None at this time Behavior[employer] Department Chair notes: No venous reflux seen at this time. IMPRESSION: 1. No evidence for DVT within the bilateral lower extremities imaged from the groin to the upper calv es. 2. No venous reflux identified in the lower extremities.
--- NOTE | 2021-02-19 08:30 | P.ARTDOP ---
Arterial Doppler LOWER EXTREMITY ARTERIAL DOPPLER: DATE OF SERVICE: 02/18/2021 Reason for study: Right leg ulcer. Doppler waveforms: Multiphasic bilaterally throughout. Pulse volume recording: []. Pressure gradients: None. Ankle-brachial indices: Greater than 1 bilaterally. Toe brachial indices: Greater than 1 bilaterally Impression: Normal study.
== END | disposition home or self-care (01) ==
LOC: RADUSWWP 08:18
PROVIDERS: ATTEND Family Medicine
DX: I87.313 Chronic venous hypertension (idiopathic) with ulcer of bilateral lower extremity (principal)
CPT/HCPCS: 93922; 93970

== ENCOUNTER → 2021-09-11 | Outpatient (CLI) | payer MEDICARE ==
--- NOTE | 2021-09-12 04:35 | MR ---
EXAMINATION TYPE: MR cervical spine wo con DATE OF EXAM: 09/11/2021 COMPARISON: 09/23/2018 HISTORY: Neck pain, headahces, hx injury. Prior on pacs. Multiplanar multiecho imaging of the cervical spine with no contrast. There is normal alignment of the vertebra. There is anterior bridging osteophyte formation from C3 to C7. There is posterior osteophyte formation and thickening of the posterior longitudinal ligament at C5-6 and C6-7 with narrowing of the spinal canal. Spinal canal measures 6.5 mm at C5-6 which is the narrowest point. No evidence of cervical cord edema. At T1-2 there is posterior disc herniation and n arrowing of the spinal canal that measures 5.5 mm. The brainstem is intact. IMPRESSION: Bridging osteophyte formation that could be skeletal hyperostosis with large anterior bridging osteop hyte formation from C3 to C7. There is some spinal stenosis as above at C5-6 and T1 T2. No significant change compared to old exam.
== END | disposition home or self-care (01) ==
LOC: RADMRIMAIN 18:44
PROVIDERS: ATTEND Psychiatry & Neurology Neurology
DX: M48.02 Spinal stenosis, cervical region (principal)
CPT/HCPCS: 72141

== ENCOUNTER → 2022-05-18 | Outpatient (CLI) | payer MEDICARE ==
--- NOTE | 2022-05-18 19:52 | CT ---
EXAMINATION TYPE: CT abdomen wo/w con DATE OF EXAM: 05/18/2022 COMPARISON: 04/14/2016 HISTORY: abdominal pain CT DLP: 4602.4 mGycm CONTRAST: CT scan of the abdomen and pelvis is performed with Oral Contrast and without and with IV Contrast, p atient injected with 80 cc mL of Isovue 300. FINDINGS: LUNG BASES-: No visible nodule. No infiltrate. LIVER/GB: Small gallstones noted without wall thickening. No space occupying hepatic lesion. Biliary tree is of normal caliber. PANCREAS: No inflammation. No distinct mass. SPLEEN: No splenic enlargement. No lesion seen. ADRENALS: No nodule. No thickening. KIDNEYS/BLADDER: The focal areas of renal parenchymal thinning related to prior insult right kidney. Calculus lower pole right kidney measures 1.8 cm. Calculus in the region of the renal pelvis measures 8 mm on the right. 3 mm nonobstructing calculus mid pole left kidney. No renal masses seen. No hydro nephrosis. BOWEL: Normal appendix. Normal bowel caliber. No inflammation. LYMPH NODES: No greater than 1cm abdominal or pelvic lymph nodes are appreciated. AORTA: No significant abnormality. OSSEOUS STRUCTURES: No significant abnormality is seen. OTHER: No significant additional abnormality is seen. IMPRESSION: 1. Nonobstructing nephrolithiasis right greater than left. Focal areas renal parenchymal thinning rig ht kidney likely from prior insult. 2. Uncomplicated cholelithiasis.
== END | disposition home or self-care (01) ==
LOC: RADCTMAIN 17:07
PROVIDERS: ATTEND Family Medicine
DX: K80.20 Calculus of gallbladder without cholecystitis without obstruction (principal); N20.0 Calculus of kidney
CPT/HCPCS: 82565; 84520; 74170; 36415; Q9967

== ENCOUNTER → 2023-12-30 | Outpatient (CLI) | payer MEDICARE ==
--- NOTE | 2023-12-30 18:30 | CT ---
EXAMINATION TYPE: CT thor lumbar spine wo con DATE OF EXAM: 12/30/2023 6:04 PM COMPARISON: MRI same day. CLINICAL INDICATION: Male, 78 years old with history of M48.04 SPINAL STENOSIS, THORACIC REGION; Pain throughout back/neck x7 years. TECHNIQUE: Axial images of the thoracic and lumbar spine were obtained without contrast. Coronal and sagittal reformats were performed. CT Contrast: Contrast used: mL of , none. Oral contrast used: none. CT DLP: 3291.2 mGycm, Automated exposure control for dose reduction was used. FINDINGS: Bridging osteophytes throughout the spine along the anterior longitudinal ligament. Multilevel osteop hyte formation and facet joint arthropathy throughout the spine. The spinal canal is patent with the limitations of CT. No foraminal stenosis worse in the lumbar spine at C4-C5 and C5-6 with at least mo derate bilateral stenosis. The thoracic and remainder of the lumbar spine and neural foramen are holly sly patent. Remote appearing left rib 6 with incomplete osseous fusion. Spinal alignment is slightly increased kyphotic alignment with straightening of the lumbar spine. Other: Atrophic kidneys with nonobstructing renal calculi bilaterally. Cholelithiasis. IMPRESSION: 1. No evidence of fracture of the lumbar spine. 2. Moderate multilevel degeneration changes throughout the spine. Evaluation slightly limited in the lower lumbar spine due to [id number] and mottling of the images. No evidence for significant spina l canal stenosis. Neural foraminal stenosis worse at L4-L5 and L5-S1 with moderate bilateral. 3. Diffuse idiopathic skeletal hyperostosis. [facility], , 12/30/2023 6:28 PM
--- NOTE | 2023-12-30 18:31 | CT ---
EXAMINATION TYPE: CT cervical spine wo con DATE OF EXAM: 12/30/2023 6:04 PM COMPARISON: 12/30/2023 CLINICAL INDICATION: Male, 78 years old with history of M48.04 SPINAL STENOSIS, THORACIC REGION; Pain throughout back/neck x7 years. TECHNIQUE: Axial CT images from the skull base to the inferior aspect of T2 we obtained without intra venous contrast. Coronal and sagittal reformatted images were also reviewed. Contrast used: mL of , (if blank None) Oral contrast used: (if blank None) CT DLP: 861.2 mGycm, Automated exposure control for dose reduction was used. FINDINGS: Fracture: None. Osseous structures: Multilevel degenerative disc disease changes with endplate spurring and disc oste ophyte complex's. Bridging anterior longitudinal ligament osteophytes with large bony protuberance an teriorly at C3-C4 and C5. Calcification of the posterior longitudinal ligament at C4-C5 and C6 with a t least mild to moderate spinal canal stenosis. Vertebral alignment: Alignment within normal limits. Spinal canal/Neural Foramina: Mild to moderate stenosis secondary posterior longitudinal ligament erica iccation at C4-C5 and C6. No foraminal and grossly patent throughout the spine. No evidence for significant neural foraminal st enosis. Neck soft tissues: Prevertebral soft tissues are within normal limits. Other: The airway is patent. The lung apices are clear. Atherosclerosis of the carotid bifurcations. IMPRESSION: 1. No evidence of cervical spine fracture. 2. Moderate to severe multilevel degenerative disc disease. 3. Bridging anterior longitudinal ligament osteophytes with large bony protuberance anteriorly at C3- C4 and C5. Correlate for dysphagia. 4. Findings suggestive of diffuse idiopathic skeletal hyperostosis. 5. Posterior longitudinal ligament osteophyte formation at C4-C5 and C6 with at least mild to moderat e spinal canal stenosis. [facility], , 12/30/2023 6:29 PM
== END | disposition home or self-care (01) ==
LOC: RADMRIMAIN 15:41
PROVIDERS: ATTEND Neurological Surgery
DX: M48.04 Spinal stenosis, thoracic region (principal); M47.812 Spondylosis without myelopathy or radiculopathy, cervical region; M45.0 Ankylosing spondylitis of multiple sites in spine; M50.31 Other cervical disc degeneration, high cervical region; M25.78 Osteophyte, vertebrae; M48.02 Spinal stenosis, cervical region; M51.360 Other intervertebral disc degeneration, lumbar region with discogenic back pain only; M48.061 Spinal stenosis, lumbar region without neurogenic claudication; M48.10 Ankylosing hyperostosis [Forestier], site unspecified
CPT/HCPCS: 72125; 72128; 72131; 72141; 72146

== ENCOUNTER → 2024-08-16 | Outpatient (CLI) | payer MEDICARE ==
--- NOTE | 2024-08-16 11:23 | CT ---
EXAMINATION TYPE: CT chest wo con DATE OF EXAM: 08/16/2024 10:34 AM COMPARISON: 01/04/2018. 12/30/2023. CLINICAL INDICATION: Male, 79 years old with history of Z85.110 personal hx malignant neoplasm; PHH, FOLLOW UP CARCINOID/PROSTATE CA TECHNIQUE: Multiple axial images were obtained through the chest. Sagittal and coronal reformats were created for review. MIP was performed on a separate workstation. Contrast used: mL of (None if empty) Oral contrast used: (None if empty) CT DLP: 680.7 mGycm, Automated exposure control for dose reduction was used. FINDINGS: LUNGS/ PLEURA: Postsurgical changes of the left lung with leftward shift of the mediastinum. No focal consolidation, pneumothorax or pleural effusion. AIRWAY: Patent and unremarkable. HEART: Size within normal limits. No significant coronary artery calcifications. MEDIASTINUM: No gross evidence of adenopathy. VASCULATURE: No aortic aneurysm. MUSCULOSKELETAL: Bridging syndesmophytes are seen throughout the spine along the anterior longitudina l ligament. Moderate disc degeneration changes are present throughout the thoracolumbar spine seconda ry to osteophyte formation and facet joint arthropathy. Postsurgical changes of left lateral rib 6. SOFT TISSUES/LYMPH NODES: Unremarkable. LOWER NECK: No significant findings. UPPER ABDOMEN: r bilateral nonobstructing renal calculi measuring up to 20 mm on the right and 5 mm o n the left. IMPRESSION: 1. Post surgical changes no evidence for lymphadenopathy or suspicious mass. 2. Diffuse idiopathic skeletal hyperostosis. 3. Nonobstructing bilateral renal calculi. [facility], , 08/16/2024 11:21 AM
== END | disposition home or self-care (01) ==
LOC: RADCTMAIN 10:10
PROVIDERS: ATTEND Emergency Medicine
DX: N20.0 Calculus of kidney (principal); C61 Malignant neoplasm of prostate; Z85.110 Personal history of malignant carcinoid tumor of bronchus and lung
CPT/HCPCS: 71250